=== PATIENT | male | born 1995 | race American Indian/Alaskan Native ===

== ENCOUNTER 2017-05-30 22:23 | Emergency (ER) | payer OTHER ==
[2017-05-30] MEDS ORDERED: MORPHINE IV ONE (22:48)
[2017-05-30] MEDS ORDERED: ZOFRAN IV ONE (22:48)
[2017-05-30 23:29] VITALS: BP 139/84
[2017-05-31 00:08] LABS: BUN/Creatinine Ratio TNR; Blood Urea Nitrogen TNR mg/dL (9-20)
[2017-05-31 00:09] LABS: Alanine Aminotransferase TNR units/L (7-56); Albumin TNR g/dL (3.9-5); Calcium TNR mg/dL (8.4-10.2)
[2017-05-31 00:10] LABS: Hemolysis Index TNR
--- NOTE | 2017-05-31 00:17 | Cat Scan Report ---
FINAL REPORT PROCEDURE: CT CERVICAL SPINE WO CON TECHNIQUE: Computerized tomography of the cervical spine was performed from the skull base to T1 without contrast material. HISTORY: Neck pain. COMPARISON: No prior studies are available for comparison. FINDINGS: C1-2: No significant abnormality. C2-3: No significant abnormality. C3-4: No significant abnormality. C4-5: No significant abnormality. C5-6: Slight disc bulge. C6-7: No significant abnormality. C7-T1: No significant abnormality. Other: Slight irregularity of the left carotid canal (image 142 series 3). IMPRESSION: No CT evidence of cervical spine fracture. Slight irregularity of the left carotid canal felt to most likely be volume averaging. Consider further evaluation and followup including dedicated imaging of the skullbase if this is of continued clinical concern.
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
[2017-05-31] MEDS ORDERED: BOOSTRIX IM ONE (01:30)
[2017-05-31] MEDS ORDERED: SUBLIMAZE IV ONE (01:39)
[2017-05-31] MEDS ORDERED: ZOFRAN IV ONE (01:39)
--- NOTE | 2017-05-31 01:46 | XRay Report ---
FINAL REPORT PROCEDURE: XR HAND 2V LT TECHNIQUE: LEFT hand radiographs, AP and lateral views. CPT 49299-JQ HISTORY: dorsolateral lt hand pain over 1st 2nd metacapal COMPARISON: No prior studies are available for comparison. FINDINGS: Fracture (s) and/or Dislocation(s): None . Alignment: Normal . Joint space(s): Normal . Soft tissues: Normal . Bone mineralization: Normal . Foreign bodies: None . IMPRESSION: Normal Examination .
[2017-05-31 02:00] LABS: Basophils # (Auto) 0.1 K/mm3 (0.0-0.1); Basophils % (Auto) 0.3 % (0.0-1.8); Eosinophils # (Auto) 0.1 K/mm3 (0.0-0.4); Eosinophils % (Auto) 0.5 % (0.0-4.3); Hematocrit 49.9 % (35.5-45.6); Hemoglobin 16.9 gm/dl (11.8-15.2); Lymphocytes # (Auto) 2.8 K/mm3 (1.2-5.4); Lymphocytes % (Auto) 13.8 % (13.4-35.0); Mean Corpuscular HGB Conc 34 % (32-34); Mean Corpuscular Hemoglobin 29 pg (28-32); Mean Corpuscular Volume 85 fl (84-94); Platelet Count 327 K/mm3 (140-440); Red Blood Count 5.85 M/mm3 (3.65-5.03); Red Cell Distribution Width 12.9 % (13.2-15.2)
[2017-05-31] MEDS ORDERED: XYLOCAINE 1% 20 mL ONE (02:02)
[2017-05-31 02:06] LABS: Alanine Aminotransferase 25 units/L (7-56); Albumin 4.5 g/dL (3.9-5); BUN/Creatinine Ratio 18; Blood Urea Nitrogen 14 mg/dL (9-20); Calcium 9.2 mg/dL (8.4-10.2); Hemolysis Index 39
== END 2017-05-31 04:51 | disposition home or self-care (01) ==
LOC: ED 22:23
DX: S02.2XXA Fracture of nasal bones, initial encounter for closed fracture (principal); S02.401A Maxillary fracture, unspecified side, initial encounter for closed fracture; S02.80XA Fracture of other specified skull and facial bones, unspecified side, initial encounter for closed fracture; S01.21XA Laceration without foreign body of nose, initial encounter; G44.319 Acute post-traumatic headache, not intractable; M79.642 Pain in left hand; Z79.899 Other long term (current) drug therapy; V87.7XXA Person injured in collision between other specified motor vehicles (traffic), initial encounter; Y93.89 Activity, other specified; Y99.8 Other external cause status; Y92.410 Unspecified street and highway as the place of occurrence of the external cause
CPT/HCPCS: 12011; 36415; 70450; 70486; 72125; 73120; 80053; 85025; 96374; 96375; 99285; G0480; J2270; J2405; 80320